=== PATIENT | female | born 2000 | race Caucasian/White ===

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

== ENCOUNTER 2020-01-06 14:59 | Emergency (ER) | payer OTHER ==
[2020-01-06 15:21] VITALS: BP 124/62
--- NOTE | 2020-01-06 15:30 | UC ---
Complaint Female HPI - HPI Summary HPI Summary: Pt c/o sudden onset of urinary urgency and frequency that began this morning. Pt denies dysuria. Pt took OTC AZO prior to arrival at clinic. - History Of Current Complaint Chief Complaint: [facility] Stated Complaint: URINARY Time Seen by Provider: 01/06/20 15:04 Hx Obtained From: Patient Hx Last Menstrual Period: 12/31/19 BCP ?: No Onset/Duration: Sudden Onset, Lasting Hours Timing: Constant Severity Initially: Mild Severity Currently: Mild Pain Intensity: 0 Character: Not Applicable Aggravating Factor(s): Urination Alleviating Factor(s): Nothing Associated Signs And Symptoms: Positive: Negative - Risk Factors Ectopic Risk Factor: Negative Ovarian Torsion Risk Factor: Reproductive Age - Allergies/Home Medications Allergies/Adverse Reactions: Allergies Allergy/AdvReac Type Severity Reaction Status Date / Time casaba Allergy Severe Swelling Uncoded 01/06/20 15:14 Of Face,Lips,& Throat red punch Allergy Mild Vomiting Uncoded 01/06/20 15:14 Home Medications: Home Medications Norgestimate-Ethinyl Estradiol [Trd-Rv-Iqeiebos Tablet] 1 tab PO BEDTIME [History Confirmed 01/06/20] Cephalexin CAP* [Keflex 500 CAP*] 500 mg PO Q12H #14 cap 01/06/20 [Rx] Clindamycin 1% TOPICAL(NF) [Cleocin-T 1% TOPICAL(NF)] 1 % EX BEDTIME 01/06/20 [ History Confirmed 01/06/20] PMH/Surg Hx/FS Hx/Imm Hx Previously Healthy: Yes - Surgical History Surgical History: Yes Surgery Procedure, Year, and Place: T&A. wisdom teeth - Family History Known Family History: Positive: Hypertension - Social History Occupation: Student Lives: With Family Alcohol Use: Rare Substance Use Type: None Smoking Status (MU): Never Smoked Tobacco Have You Smoked in the Last Year: No - Immunization History Vaccination Up to Date: Yes Review of Systems All Other Systems Reviewed And Are Negative: Yes Constitutional: Positive: Negative Skin: Positive: Negative Eyes: Positive: Negative ENT: Positive: Negative Respiratory: Positive: Negative Cardiovascular: Positive: Negative Gastrointestinal: Positive: Negative Genitourinary: Positive: Frequency, Urgency Motor: Positive: Negative Neurovascular: Positive: Negative Musculoskeletal: Positive: Negative Neurological/Mental Status: Positive: Negative Psychological: Positive: Negative Is Patient Immunocompromised?: No Physical Exam Triage Information Reviewed: Yes Appearance: Well-Appearing Vital Signs: Initial Vital Signs Temp 97.4 F 01/06/20 15:20 Pulse 63 01/06/20 15:20 Resp 15 01/06/20 15:20 BP 124/62 01/06/20 15:20 Pulse Ox 99 01/06/20 15:20 Vital Signs Reviewed: Yes Eye Exam: Normal ENT Exam: Normal Dental Exam: Normal Neck exam: Normal Respiratory Exam: Normal Cardiovascular Exam: Normal Abdominal Exam: Normal Musculoskeletal Exam: Normal Neurological Exam: Normal Psychological Exam: Normal Skin Exam: Normal Complaint Female Dx - Differential Dx/Diagnosis Differential Diagnosis/HQI/PQRI: Sexually Transmitted Disease, Ureteral Stone, Urinary Tract Infection Provider Diagnosis: Urinary frequency Discharge ED - Sign-Out/Discharge Documenting (check all that apply): Patient Departure All imaging exams completed and their final reports reviewed: No Studies - Discharge Plan Condition: Stable Disposition: HOME Prescriptions: Cephalexin CAP* [Keflex 500 CAP*] 500 mg PO Q12H #14 cap Patient Education Materials: Urinary Urgency and Frequency (DC) Referrals: Radha Dean PA [Primary Care Provider] - If Needed - Billing Disposition and Condition Condition: STABLE Disposition: Home
--- NOTE | 2020-01-09 08:34 | UC ---
- Progress Note Progress Note: please notify patient urine culture negative stop antibiotic recheck here or with PCP if still symptomatic Course/Dx - Diagnoses Provider Diagnoses: Urinary frequency Discharge ED - Sign-Out/Discharge Documenting (check all that apply): Post-Discharge Follow Up All imaging exams completed and their final reports reviewed: No Studies - Discharge Plan Condition: Stable Disposition: HOME Prescriptions: Cephalexin CAP* [Keflex 500 CAP*] 500 mg PO Q12H #14 cap Patient Education Materials: Urinary Urgency and Frequency (DC) Referrals: Radha Dean PA [Primary Care Provider] - If Needed - Billing Disposition and Condition Condition: STABLE Disposition: Home
== END 2020-01-06 15:35 | disposition home or self-care (01) ==
LOC: UCCORT 14:59
DX: R35.0 Frequency of micturition (principal); R39.15 Urgency of urination; Z91.018 Allergy to other foods
CPT/HCPCS: 87086; 99212; G0463